=== PATIENT | male | born 1940 | race Caucasian/White ===

== ENCOUNTER 2017-02-26 05:43 | Day surgery (SDC) | payer MEDICARE, OTHER ==
[~2017-02-26] VITALS: Ht 177.8 cm; Wt 81.6 kg
[~2017-02-26 05:43] MED LIST: ADULT ASPIRIN E81 MG PO; ALLOPURINOL100 MG PO; AMLODIPINE5 MG PO; CARVEDILOL6.25 MG PO; CHLORTHALID25 MG PO; MULTI VIT PO; PANTOPRAZOLE SO40 MG PO; PRAVASTATIN20 MG PO; VITAMIN D31000 UNI1 PO
[2017-02-26 08:06] VITALS: BP 118/72
== END 2017-02-26 08:20 | disposition home or self-care (01) ==
LOC: ENDO 05:43 → ORM 08:00 → ENDO 08:00
PROVIDERS: ATTEND Surgery
PROC: 0DJ08ZZ Inspection of Upper Intestinal Tract, Via Natural or Artificial Opening Endoscopic (ICD-10-PCS; principal; 2017-02-26)
PROC: 0DJD8ZZ Inspection of Lower Intestinal Tract, Via Natural or Artificial Opening Endoscopic (ICD-10-PCS; 2017-02-26)
DX: R14.0 Abdominal distension (gaseous) (principal); K30 Functional dyspepsia; Z12.11 Encounter for screening for malignant neoplasm of colon; N18.9 Chronic kidney disease, unspecified; I12.9 Hypertensive chronic kidney disease with stage 1 through stage 4 chronic kidney disease, or unspecified chronic kidney disease; K44.9 Diaphragmatic hernia without obstruction or gangrene; K29.70 Gastritis, unspecified, without bleeding; R10.13 Epigastric pain; K57.30 Diverticulosis of large intestine without perforation or abscess without bleeding
CPT/HCPCS: 43235; G0121

== ENCOUNTER 2018-05-11 00:42 | Emergency (ER) | payer MEDICARE, OTHER ==
[~2018-05-11] VITALS: Ht 177.8 cm; Wt 84.6 kg
[2018-05-11] MEDS ORDERED: PEPCID20 MG PO (00:57)
[2018-05-11] MEDS ORDERED: AMOXICILLIN500 MG PO (01:04)
[2018-05-11 01:24] VITALS: BP 179/89
== END 2018-05-11 01:24 | disposition home or self-care (01) ==
LOC: ED 00:42
DX: J01.90 Acute sinusitis, unspecified (principal); I10 Essential (primary) hypertension

== ENCOUNTER 2018-10-11 09:21 | Emergency (ER) | payer MEDICARE, OTHER ==
[~2018-10-11] VITALS: Ht 177.8 cm; Wt 82.0 kg
[~2018-10-11 09:21] MED LIST changes: +AMOXICILLIN500 MG PO; +PEPCID20 MG PO
[2018-10-11] MEDS ORDERED: BACTRIM DS1 TAB PO (10:17)
[2018-10-11] MEDS ORDERED: CEPHALEXIN500 M1 PO (10:17)
[2018-10-11] MEDS ORDERED: FLOXIN OTIC0.3 % AD (10:17)
[2018-10-11 10:20] VITALS: BP 159/74
[2018-10-11] MEDS ORDERED: PRAVASTATIN SOD40 MG PO (10:27)
== END 2018-10-11 10:20 | disposition home or self-care (01) ==
LOC: ED 09:21
PROC: 0H92XZZ Drainage of Right Ear Skin, External Approach (ICD-10-PCS; principal; 2018-10-11)
DX: H60.11 Cellulitis of right external ear (principal); H60.91 Unspecified otitis externa, right ear; I10 Essential (primary) hypertension